=== PATIENT | female | born 1945 | race Caucasian/White ===

== ENCOUNTER 2020-08-29 20:59 | Emergency (ER) | payer MEDICARE, OTHER ==
[~2020-08-29] VITALS: Ht 162.6 cm; Wt 113.4 kg
[~2020-08-29 20:59] MED LIST: ENALAPRIL MALEA20 MG PO; LIPITOR10 MG PO; TOPROL XL25 MG PO; XARELTO10 MG PO
[2020-08-29] MEDS ORDERED: ACETAMINOPHEN 325 MG TAB PO ONE (21:15)
[2020-08-29] MEDS ORDERED: PIPER-TAZ 3.375 GM 50 ML IV ONE (21:15)
[2020-08-29 22:20] LABS: BASOPHILS % 0.2 % (0.0-1.0); EOSINOPHILS % 0.2 % (0.0-6.0); HEMATOCRIT 42.1 % (34.2-44.1); HEMOGLOBIN 13.7 g/dL (12.0-16.0); LYMPHOCYTES % 5.8 % (18.0-39.1); MEAN CORPUSCULAR HEMOGLOBIN 32.6 pg (28-32); MEAN CORPUSCULAR HGB CONC 32.5 g/dL (31-35); MEAN CORPUSCULAR VOLUME 100.2 fL (81-99); MONOCYTES # (AUTO) 1.7 (0.2-0.8); MONOCYTES % 10.5 % (4.4-11.3); NEUTROPHILS # (AUTO) 13.7 (2.1-6.9); NEUTROPHILS % 82.7 % (38.7-80.0); PLATELET COUNT 223 x10e3/uL (140-360); RED CELL DISTRIBUTION WIDTH 13.2 % (11.7-14.4)
[2020-08-29 22:39] LABS: ALBUMIN 3.3 g/dL (3.5-5.0); ANION GAP 18.1 mmol/L (8-16); CALCIUM 8.2 mg/dL (8.4-10.2); CREATININE, SERUM 1.09 mg/dL (0.57-1.11); POTASSIUM 5.1 mmol/L (3.5-5.1)
[2020-08-29] MEDS ORDERED: SODIUM CHLORIDE 0.9% 1000ML 1,000 ML IV ONE (23:15)
== END 2020-08-30 03:45 | disposition other institution (70) ==
LOC: ER 21:20
DX: A41.9 Sepsis, unspecified organism (principal); J18.9 Pneumonia, unspecified organism; L03.115 Cellulitis of right lower limb; R50.9 Fever, unspecified; R05 Cough; Z20.828 Contact with and (suspected) exposure to other viral communicable diseases; M10.9 Gout, unspecified; Z96.641 Presence of right artificial hip joint; Z96.651 Presence of right artificial knee joint
CPT/HCPCS: 36415; 71045; 80053; 83605; 85025; 87040; 87400; 99285; J2543; J7030; U0002

== ENCOUNTER → 2022-01-08 | Outpatient (CLI) | payer MEDICARE | LOC: MAMMO 12:29 | PROVIDERS: ATTEND Family Medicine | DX: Z12.31 Encounter for screening mammogram for malignant neoplasm of breast (principal); M81.8 Other osteoporosis without current pathological fracture | CPT/HCPCS: 77067; 77080 ==

== ENCOUNTER → 2022-04-01 | Day surgery (SDC) | payer MEDICARE ==
[2022-03-30 12:04] LABS: BASOPHILS # (AUTO) 0.1 (0.0-0.1); BASOPHILS % 0.5 % (0.0-1.0); EOSINOPHILS # (AUTO) 0.2 (0.0-0.4); EOSINOPHILS % 2.3 % (0.0-6.0); HEMATOCRIT 44.8 % (34.2-44.1); HEMOGLOBIN 14.2 g/dL (12.0-16.0); LYMPHOCYTES # (AUTO) 2.1 (1.0-3.2); LYMPHOCYTES % 21.1 % (18.0-39.1); MEAN CORPUSCULAR HEMOGLOBIN 31.9 pg (28-32); MEAN CORPUSCULAR HGB CONC 31.7 g/dL (31-35); MEAN CORPUSCULAR VOLUME 100.7 fL (81-99); MONOCYTES # (AUTO) 0.9 (0.2-0.8); MONOCYTES % 8.4 % (4.4-11.3); NEUTROPHILS # (AUTO) 6.8 (2.1-6.9); NEUTROPHILS % 67.4 % (38.7-80.0); PLATELET COUNT 198 x10e3/uL (140-360); RED BLOOD COUNT 4.45 x10e6/uL (3.6-5.1); RED CELL DISTRIBUTION WIDTH 12.7 % (11.7-14.4)
[2022-03-30 12:29] LABS: ANION GAP 18.6 mmol/L (8-16); CALCIUM 8.8 mg/dL (8.4-10.2); CREATININE, SERUM 1.69 mg/dL (0.57-1.11); POTASSIUM 4.6 mmol/L (3.5-5.1)
[~2022-04-01] MED LIST changes: +BALANCED SALT SOLN (OPTH) 15 ML BTL IO ONE; +BUPIVACAINE HC 0.75% PF 10ML VIAL INJ ONE; +CRESTOR10 MG PO; +CYCLOPENTOLATE HCL 2% OPTH SOLN 2 ML BTL OP ONE; +DICYCLOMINE HCL20 MG PO; +EPINEPHRINE HCL 1:1000 1ML 1 MG/ML AMP ONE; +FUROSEMIDE40 MG PO; +GATIFLOXACIN(OPTH) 5 ML LIQD ONE; +LEVOTHYROXINE50 MCG PO; +LIDOCAINE 2% /EPINEPHRINE 20 ML SDV INJ ONE; +LIDOCAINE HCL 2% LOCAL INJ 5 ML SDV VIAL INJ ONE; +LIDOCAINE HCL-PF 4% 40 MG/1 ML 5ML AMP ONE; +MIDAZOLAM HCL 2 MG/2 ML VIAL ONE; +OMEPRAZOLE40 MG PO; +PHENYLEPHRINE HCL 2 ML DROPS ONE; +PILOCARPINE HCL(OPTH) 15 ML LIQD ONE; +PLAVIX75 MG PO; +POVIDONE IODINE 0.05% 0.05 % ML PO ONE; +POVIDONE IODINE 5% (OPTH) 30 ML BTL ONE; +PROPOFOL IV EMULSION 10 MG/ML 20 ML VIAL ONE; +TOBRAMYCIN/DEXAMETHASONE(OPTH) 3.5 GM TUBE ONE; +VENTOLIN HFA18 GM INH; +ZESTRIL10 MG PO
[2022-04-01 10:25] VITALS: BP 145/80
== END | disposition home or self-care (01) ==
LOC: OR 07:52
PROVIDERS: ATTEND Ophthalmology
DX: H25.12 Age-related nuclear cataract, left eye (principal); I10 Essential (primary) hypertension; I48.91 Unspecified atrial fibrillation; E03.9 Hypothyroidism, unspecified; R53.1 Weakness; H91.90 Unspecified hearing loss, unspecified ear; J45.909 Unspecified asthma, uncomplicated; I82.409 Acute embolism and thrombosis of unspecified deep veins of unspecified lower extremity; K27.9 Peptic ulcer, site unspecified, unspecified as acute or chronic, without hemorrhage or perforation; K21.9 Gastro-esophageal reflux disease without esophagitis; E66.01 Morbid (severe) obesity due to excess calories; Z01.810 Encounter for preprocedural cardiovascular examination; Z01.812 Encounter for preprocedural laboratory examination; Z20.822 Contact with and (suspected) exposure to COVID-19; Z79.02 Long term (current) use of antithrombotics/antiplatelets; Z79.899 Other long term (current) drug therapy
CPT/HCPCS: 0223U; 36415; 66984; 80048; 85025; 93005; J0171; J2001 ×2; J2250; J2704; V2632

== ENCOUNTER → 2022-06-24 | Day surgery (SDC) | payer MEDICARE ==
[2022-06-22 10:55] LABS: HEMATOCRIT 46.7 % (34.2-44.1); HEMOGLOBIN 14.4 g/dL (12.0-16.0)
[2022-06-22 11:27] LABS: ANION GAP 17.7 mmol/L (8-16); CALCIUM 9.6 mg/dL (8.4-10.2); CREATININE, SERUM 1.52 mg/dL (0.57-1.11); POTASSIUM 4.7 mmol/L (3.5-5.1)
[~2022-06-24] MED LIST changes: -GATIFLOXACIN(OPTH) 5 ML LIQD ONE; -LIDOCAINE 2% /EPINEPHRINE 20 ML SDV INJ ONE; -LIDOCAINE HCL 2% LOCAL INJ 5 ML SDV VIAL INJ ONE; -MIDAZOLAM HCL 2 MG/2 ML VIAL ONE; +MOXIFLOXACIN HCL(OPTH) 3 ML BTL ONE; -PILOCARPINE HCL(OPTH) 15 ML LIQD ONE; -POVIDONE IODINE 0.05% 0.05 % ML PO ONE; -PROPOFOL IV EMULSION 10 MG/ML 20 ML VIAL ONE
[2022-06-24 11:50] VITALS: BP 144/72
== END | disposition home or self-care (01) ==
LOC: OR 08:53
PROVIDERS: ATTEND Ophthalmology
DX: H25.11 Age-related nuclear cataract, right eye (principal); E03.9 Hypothyroidism, unspecified; K21.9 Gastro-esophageal reflux disease without esophagitis; J45.909 Unspecified asthma, uncomplicated; I48.91 Unspecified atrial fibrillation; I11.0 Hypertensive heart disease with heart failure; I50.9 Heart failure, unspecified; E78.5 Hyperlipidemia, unspecified; Z88.1 Allergy status to other antibiotic agents; Z88.2 Allergy status to sulfonamides; Z91.018 Allergy to other foods; Z79.02 Long term (current) use of antithrombotics/antiplatelets; Z79.899 Other long term (current) drug therapy; Z68.39 Body mass index [BMI] 39.0-39.9, adult; Z86.69 Personal history of other diseases of the nervous system and sense organs
CPT/HCPCS: 36415; 66984; 71046; 80048; 85014; 85018; J0171

== ENCOUNTER 2023-01-29 15:06 | Inpatient (IN) | payer MEDICARE ==
[~2023-01-29] VITALS: Ht 160 cm; Wt 129.3 kg
[~2023-01-29 15:06] MED LIST changes: -BALANCED SALT SOLN (OPTH) 15 ML BTL IO ONE; -BUPIVACAINE HC 0.75% PF 10ML VIAL INJ ONE; -CYCLOPENTOLATE HCL 2% OPTH SOLN 2 ML BTL OP ONE; -EPINEPHRINE HCL 1:1000 1ML 1 MG/ML AMP ONE; -LIDOCAINE HCL-PF 4% 40 MG/1 ML 5ML AMP ONE; -MOXIFLOXACIN HCL(OPTH) 3 ML BTL ONE; -PHENYLEPHRINE HCL 2 ML DROPS ONE; -POVIDONE IODINE 5% (OPTH) 30 ML BTL ONE; -TOBRAMYCIN/DEXAMETHASONE(OPTH) 3.5 GM TUBE ONE
[2023-01-29] MEDS ORDERED: KETOROLAC TROMETHAMINE 30 MG/ML VIAL IV STA (15:11)
[2023-01-29 15:26] LABS: BASOPHILS # (AUTO) 0.1 (0.0-0.1); BASOPHILS % 0.6 % (0.0-1.0); EOSINOPHILS # (AUTO) 0.1 (0.0-0.4); EOSINOPHILS % 0.6 % (0.0-6.0); HEMATOCRIT 43.8 % (34.2-44.1); LYMPHOCYTES # (AUTO) 1.4 (1.0-3.2); LYMPHOCYTES % 14.6 % (18.0-39.1); MEAN CORPUSCULAR HEMOGLOBIN 32.2 pg (28-32); MEAN CORPUSCULAR VOLUME 100.7 fL (81-99); MONOCYTES # (AUTO) 0.6 (0.2-0.8); MONOCYTES % 6.5 % (4.4-11.3); NEUTROPHILS # (AUTO) 7.6 (2.1-6.9); NEUTROPHILS % 77.3 % (38.7-80.0); PLATELET COUNT 146 x10e3/uL (140-360); RED BLOOD COUNT 4.35 x10e6/uL (3.6-5.1); RED CELL DISTRIBUTION WIDTH 13.3 % (11.7-14.4)
[2023-01-29 15:49] LABS: ANION GAP 16.7 mmol/L (8-16); CALCIUM 9.4 mg/dL (8.4-10.2); CREATININE, SERUM 1.34 mg/dL (0.57-1.11); POTASSIUM 4.7 mmol/L (3.5-5.1)
[2023-01-29 15:51] LABS: CREATINE KINASE 63 IU/L (29-168)
[2023-01-29 15:57] LABS: CLARITY,URINE CLOUDY (CLEAR); COLOR,URINE YELLOW (YELLOW); LEUKOCYTE ESTERASE ,URINE NEGATIVE (NEGATIVE); NITRITE,URINE NEGATIVE (NEGATIVE)
[2023-01-29 15:58] LABS: KETONES,URINE 1+ (NEGATIVE); PROTEIN,URINE DIPSTICK 1+ (NEGATIVE); URINE UROBILINOGEN 0.2 mg/dL (0.2 - 1)
[2023-01-29] MEDS ORDERED: ASPIRIN 81 MG CHEW TAB PO ONE (16:00)
[2023-01-29 16:06] LABS: BACTERIA,URINE FEW /HPF; EPITHELIAL CELLS,URINE MODERATE /LPF
[2023-01-29] MEDS ORDERED: SODIUM CHLORIDE FLUSH 10 ML SYR INJ PRN (18:45)
[2023-01-29 20:00] VITALS: BP 187/100; PULSE 60; PULSE 61; RESP 16; RESP 17; TEMP 97.3; O2SAT 100; O2SAT 98
[2023-01-29 20:30] VITALS: BP 181/100; PULSE 56; RESP 16; TEMP 97.3; O2SAT 97
[2023-01-29] MEDS ORDERED: CLOPIDOGREL BISULFATE 75 MG TAB PO SCH (21:00)
[2023-01-29] MEDS ORDERED: METOPROLOL SUCCINATE 25 MG TAB XL PO ONE (21:00)
[2023-01-29] MEDS ORDERED: LISINOPRIL 20 MG TAB PO ONE (21:00)
[2023-01-29] MEDS ORDERED: ALBUTEROL SULFATE HFA 8GM INHALATION AEROSOL INH PRN (21:00)
[2023-01-29 23:11] VITALS: PULSE 82; RESP 16; O2SAT 99
[2023-01-30] VITALS (8 sets, daily range): BP systolic 152–184; BP diastolic 60–99; PULSE 50–76; RESP 14–22; TEMP 97.5–98.6; O2SAT 97–100
[2023-01-30 00:27] LABS: CREATINE KINASE MB 2.3 ng/mL (0-5.0)
[2023-01-30] MEDS: LEVOTHYROXINE SODIUM 100 MCG TAB PO SCH (05:11)
[2023-01-30 06:35] LABS: CREATINE KINASE MB 2.4 ng/mL (0-5.0)
[2023-01-30] MEDS ORDERED: FUROSEMIDE INJ 10 MG/ML 4 ML VIAL IV SCH (09:00)
[2023-01-30] MEDS ORDERED: FUROSEMIDE 40 MG TAB PO SCH (09:00)
[2023-01-30] MEDS: DICYCLOMINE HCL 20 MG TAB PO SCH (09:28)
[2023-01-30] MEDS: CLOPIDOGREL BISULFATE 75 MG TAB PO SCH (09:28)
[2023-01-30] MEDS: METOPROLOL SUCCINATE 25 MG TAB XL PO SCH (09:28)
[2023-01-30] MEDS: LISINOPRIL 20 MG TAB PO SCH (09:28)
[2023-01-30] MEDS: PANTOPRAZOLE SOD 40 MG TABEC PO SCH (09:28)
[2023-01-30] MEDS: FUROSEMIDE INJ 10 MG/ML 4 ML VIAL IV SCH ×2 (09:29→15:52)
[2023-01-30] MEDS: SIMVASTATIN 20 MG TAB PO SCH (09:31)
[2023-01-30] MEDS ORDERED: ZESTRIL10 MG PO (11:36)
[2023-01-30] MEDS ORDERED: ONDANSETRON HCL INJ 2MG/ML 2ML 2 MG/ML VIAL IV PRN (12:45)
[2023-01-30] MEDS: APIXABAN 5 MG TABLET PO SCH (15:52)
[2023-01-31] VITALS (9 sets, daily range): BP systolic 137–151; BP diastolic 66–97; PULSE 51–66; RESP 16–18; TEMP 97.4–98.4; O2SAT 97–100
[2023-01-31] MEDS: LEVOTHYROXINE SODIUM 100 MCG TAB PO SCH (05:01)
[2023-01-31] MEDS ORDERED: ACETAMINOPHEN 325 MG TAB PO PRN (07:00)
[2023-01-31] MEDS: CLOPIDOGREL BISULFATE 75 MG TAB PO SCH (08:53)
[2023-01-31] MEDS: METOPROLOL SUCCINATE 25 MG TAB XL PO SCH (08:54)
[2023-01-31] MEDS: DICYCLOMINE HCL 20 MG TAB PO SCH (08:55)
[2023-01-31] MEDS: SIMVASTATIN 20 MG TAB PO SCH (08:55)
[2023-01-31] MEDS: PANTOPRAZOLE SOD 40 MG TABEC PO SCH (08:55)
[2023-01-31] MEDS: FUROSEMIDE INJ 10 MG/ML 4 ML VIAL IV SCH ×2 (08:55→17:44)
[2023-01-31] MEDS: APIXABAN 5 MG TABLET PO SCH ×2 (08:55→17:43)
[2023-01-31] MEDS: LISINOPRIL 20 MG TAB PO SCH (08:56)
[2023-01-31] MEDS ORDERED: ONDANSETRON HCL 4 MG ORAL DISINTEGRATING TAB PO PRN (13:45)
[2023-02-01 01:09] VITALS: BP 136/74; PULSE 59; RESP 18; TEMP 97.1; O2SAT 100
[2023-02-01 04:47] VITALS: BP 127/69; PULSE 59; RESP 18; TEMP 97.1; O2SAT 100
[2023-02-01] MEDS: LEVOTHYROXINE SODIUM 100 MCG TAB PO SCH (06:08)
[2023-02-01 06:30] VITALS: PULSE 62; RESP 16; O2SAT 95
[2023-02-01 06:34] LABS: CREATININE, SERUM 1.43 mg/dL (0.57-1.11)
[2023-02-01 08:10] VITALS: BP 131/72; PULSE 68; RESP 20; TEMP 98.1; O2SAT 100
[2023-02-01 08:20] VITALS: BP 131/72; PULSE 68; RESP 20; TEMP 98.1; O2SAT 100
[2023-02-01] MEDS: LISINOPRIL 20 MG TAB PO SCH (09:24)
[2023-02-01] MEDS: FUROSEMIDE INJ 10 MG/ML 4 ML VIAL IV SCH (09:24)
[2023-02-01] MEDS: PANTOPRAZOLE SOD 40 MG TABEC PO SCH (09:25)
[2023-02-01] MEDS: APIXABAN 5 MG TABLET PO SCH (09:25)
[2023-02-01] MEDS: SIMVASTATIN 20 MG TAB PO SCH (09:25)
[2023-02-01] MEDS: METOPROLOL SUCCINATE 25 MG TAB XL PO SCH (09:25)
[2023-02-01] MEDS: DICYCLOMINE HCL 20 MG TAB PO SCH (09:25)
[2023-02-01 12:00] VITALS: BP 109/72; PULSE 71; RESP 20; TEMP 98.1; O2SAT 100
[2023-02-01] MEDS ORDERED: PROPOFOL IV EMULSION 0 ML IV ONE (13:02)
[2023-02-01] MEDS ORDERED: FUROSEMIDE 40 MG TAB PO SCH (17:00)
== END 2023-02-01 13:10 | disposition home or self-care (01) | DRG 291 ==
LOC: ER 15:12 → ERHOLD 18:39 → MED/SURG2 20:20 → OBSVTOIN 01-31 15:04
PROVIDERS: ADMIT Family Medicine; ATTEND Family Medicine
DX: I11.0 Hypertensive heart disease with heart failure (principal); I50.33 Acute on chronic diastolic (congestive) heart failure; I48.20 Chronic atrial fibrillation, unspecified; Z79.01 Long term (current) use of anticoagulants; E78.5 Hyperlipidemia, unspecified
CPT/HCPCS: 0223U; 36415; 71045; 71250; 74176; 80048; 81001; 82550; 82553; 82948; 83880; 84484; 85025; 85379; 93005; 93306; 94799; 99284; G0378; J1885; J1940

== ENCOUNTER 2023-02-08 08:38 | Emergency (ER) | payer MEDICARE ==
[~2023-02-08] VITALS: Ht 160 cm; Wt 129.3 kg
[2023-02-08 08:53] VITALS: O2SAT 98
[2023-02-08] MEDS ORDERED: VALACYCLOVIR1000 MG PO (08:59)
== END 2023-02-08 09:23 | disposition home or self-care (01) ==
LOC: ER 08:45
DX: B02.9 Zoster without complications (principal); I10 Essential (primary) hypertension; E03.9 Hypothyroidism, unspecified; M10.9 Gout, unspecified
CPT/HCPCS: 99283